=== PATIENT | male | born 1960 | race African-American/Black ===

== ENCOUNTER 2018-07-24 08:36 | Emergency (ER) | payer OTHER ==
[~2018-07-24] VITALS: Ht 182.9 cm; Wt 81.6 kg
[2018-07-24 08:33] VITALS: BP 148/78
[~2018-07-24 08:36] MED LIST: IBUPROFEN600 MG ORAL; NORCO 5-325 TA1 EACH ORAL; QUETIAPINE FUMA25 MG ORAL; ZOFRAN4 MG ORAL
--- NOTE | 2018-07-24 09:12 | Emergency Room Report ---
History of Present Illness General Chief Complaint: Medical Clearance Source: Patient, EMS Present Illness HPI Patient was brought in by police department for okay for booking As the patient was being arrested he had complained of chest pain and palpitations Patient himself here reported palpitation sensation however he was pain-free on my initial evaluation He did feel some shortness of breath and reported feeling anxious Denies any vomiting or diarrhea Denies any recent travel Patient complains of chronic sciatic pain and lower back Denies any focal weakness Allergies: Coded Allergies: No Known Allergies (Unverified , 02/21/13) Patient History Past Medical History: see triage record Pertinent Family History: none Reviewed Nursing Documentation: PMH: Agreed; PSxH: Agreed Nursing Documentation-PMH Hx Cardiac Problems: Yes Hx Hypertension: Yes History Of Psychiatric Problem: Yes Review of Systems All Other Systems: negative except mentioned in HPI Physical Exam Vital Signs Date Time Temp Pulse Resp B/P (MAP) Pulse Ox O2 Delivery O2 Flow Rate FiO2 07/24/18 08:28 98.1 84 18 148/78 100 Room Air 07/24/18 08:33 100 Sp02 EP Interpretation: reviewed, normal General Appearance: no apparent distress Head: normocephalic, atraumatic Eyes: bilateral eye PERRL, bilateral eye EOMI ENT: hearing grossly normal, normal pharynx, TMs + canals normal, uvula midline Neck: full range of motion, supple, no meningismus, no bony tend Respiratory: lungs clear, normal breath sounds, no rhonchi, no respiratory distress, no retraction, no accessory muscle use Cardiovascular #1: normal peripheral pulses, regular rate, rhythm, no edema, no gallop, no JVD, no murmur Gastrointestinal: normal bowel sounds, non tender, soft, no mass, no organomegaly, non-distended, no guarding, no hernia, no pulsatile mass, no rebound Musculoskeletal: normal inspection Neurologic: oriented x3, responsive, 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 as tested, motor strength/ tone normal, sensory intact Psychiatric: mood/affect normal Skin: normal color, no rash, warm/dry, palpation normal Lymphatic: normal inspection, no adenopathy Medical Decision Making Diagnostic Impression: Primary Impression: palpitations Additional Impression: ok to book ER Course Given the patient's complaints EKG was obtained Shows appropriate sinus rhythm Medical evaluation also reveals appropriate lung sounds No obvious respiratory distress patient continues to saturate well on room air and has appropriate hemodynamic stability At this time is appropriate for close outpatient follow-up Rhythm Strip Diag. Results EP Interpretation: yes Rate: 70 Rhythm: NSR, no PVC's, no ectopy Last Vital Signs Date Time Temp Pulse Resp B/P (MAP) Pulse Ox O2 Delivery O2 Flow Rate FiO2 07/24/18 08:33 98.0 85 20 148/78 100 Room Air 07/24/18 08:33 100 Status: improved Disposition: D/C TO [facility] IN [facility] Condition: Improved Departure Forms: Retirement Clearance Patient Instructions: Palpitations, [id number] Additional Instructions: Follow-up moe Damon in the morning Luis E Domingo DO Jul 24, 2018 09:12
[2018-07-24 09:19] VITALS: BP 147/87
== END 2018-07-24 09:20 ==
LOC: EDBD 08:36 → EMR 08:55
DX: R00.2 Palpitations (principal); R07.9 Chest pain, unspecified; I10 Essential (primary) hypertension
CPT/HCPCS: 93005; 99283

== ENCOUNTER 2019-05-16 11:38 | Emergency (ER) | payer OTHER ==
[~2019-05-16] VITALS: Ht 175.3 cm; Wt 85.7 kg
[2019-05-16 12:00] VITALS: BP 110/65
--- NOTE | 2019-05-16 12:00 | NUR ---
ED Nurse Note: Patient walked in to ER from home due to Rt lower toothache. pt aao x4 and ambulatory. skin clean and intact. calm and cooperative. no acute distress noted at this time.
--- NOTE | 2019-05-16 12:08 | Emergency Room Report ---
History of Present Illness General Chief Complaint: Toothache Source: Patient Present Illness HPI 58-year-old male with no significant past medical history here complaining of 10 days of right sided jaw pain secondary to a loose tooth that has been having pus drainage lately. Patient has an upcoming dental appointment in 2 weeks. Rating the pain 10 out of 10 without radiation. Denies numbness and tingling. Taking Tylenol ibuprofen with minimal relief. Patient denies any fever and chills, URI symptoms, headache, dizziness, chest pain, shortness of breath, palpitation, and other associated symptoms. Patient sitting comfortably with stable vital signs minimal pus drainage noted in the right posterior molars. Allergies: Coded Allergies: No Known Allergies (Unverified , 02/21/13) Patient History Past Medical History: see triage record Past Surgical History: unable to obtain Pertinent Family History: none Immunizations: UTD Reviewed Nursing Documentation: PMH: Agreed; PSxH: Agreed Nursing Documentation-PMH Hx Cardiac Problems: No - High cholesterol Hx Hypertension: Yes Review of Systems All Other Systems: negative except mentioned in HPI Physical Exam Vital Signs Date Time Temp Pulse Resp B/P (MAP) Pulse Ox O2 Delivery O2 Flow Rate FiO2 05/16/19 11:51 98.1 57 18 110/65 (80) 96 Room Air Sp02 EP Interpretation: reviewed, normal General Appearance: no apparent distress, alert, GCS 15, non-toxic Head: normocephalic, atraumatic Eyes: bilateral eye normal inspection, bilateral eye PERRL ENT: normal ENT inspection, hearing grossly normal, normal pharynx, no angioedema, other - pus drainage right posterior upper molar Neck: normal inspection, full range of motion, supple Respiratory: chest non-tender, lungs clear, normal breath sounds, no wheezing, speaking full sentences Cardiovascular #1: regular rate, rhythm, no edema, no murmur Gastrointestinal: normal bowel sounds, non tender, soft, non-distended, no guarding, no rebound Rectal: deferred Musculoskeletal: back normal, gait/station normal, normal range of motion, non- tender Neurologic: alert, oriented x3, responsive, motor strength/tone normal, sensory intact, speech normal Psychiatric: judgement/insight normal, memory normal, mood/affect normal, no suicidal/homicidal ideation Skin: no rash Lymphatic: no adenopathy Medical Decision Making PA Attestation All my diagnosis and treatment plans were reviewed ad discussed with my supervising physician Dr. Domingo Diagnostic Impression: Primary Impression: Tooth infection ER Course 58-year-old male with no significant past medical history here complaining of 10 days of right sided jaw pain secondary to a loose tooth that has been having pus drainage lately. Patient has an upcoming dental appointment in 2 weeks. Rating the pain 10 out of 10 without radiation. Denies numbness and tingling. Taking Tylenol ibuprofen with minimal relief. Patient denies any fever and chills, URI symptoms, headache, dizziness, chest pain, shortness of breath, palpitation, and other associated symptoms. Patient sitting comfortably with stable vital signs minimal pus drainage noted in the right posterior molars. Ddx considered but are not limited to : Cellulitis, tooth infection,toothache, tooth abscess Vital signs: are WNL, pt. is afebrile H&PE are most consistent with:tooth infx ORDERS: Augmentin, prednisone, ibuprofen ED INTERVENTIONS: Toradol DISCHARGE: At this time pt. is stable for d/c to home. Will provide printed patient care instructions, and any necessary prescriptions. Care plan and follow up instructions have been discussed with the patient prior to discharge. Take medication as directed follow-up with your next visit if worsening symptoms return to the emergency room avoid eating with the affected side Last Vital Signs Date Time Temp Pulse Resp B/P (MAP) Pulse Ox O2 Delivery O2 Flow Rate FiO2 05/16/19 11:51 98.1 57 18 110/65 (80) 96 Room Air Disposition: HOME, SELF-CARE Condition: Stable Scripts Ibuprofen (Ibu) 800 Mg Tablet 800 MG PO TID, #30 TAB Prov: Nitza Bhakta 05/16/19 Amoxicillin/Potassium Clav 875-125* (AUGMENTIN 875-125 TABLET*) 1 Each Tablet 1 TAB ORAL TWICE A DAY for 7 Days, #14 TAB Prov: Nitza Bhakta 05/16/19 Prednisone* (PREDNISONE*) 20 Mg Tablet 40 MG ORAL DAILY for 5 Days, #10 TAB Prov: Nitza Bhakta 05/16/19 Patient Instructions: Dental Pain Additional Instructions: Take medication as directed follow-up with your dentist if worsening symptoms return to the emergency Nitza Bhakta May 16, 2019 12:08
[2019-05-16] MEDS ORDERED: PREDNISONE20 MG ORAL (12:10)
[2019-05-16] MEDS ORDERED: IBU800 MG PO (12:10)
[2019-05-16] MEDS ORDERED: AUGMENTIN 875-1 EAC1 ORAL (12:10)
[2019-05-16] MEDS ORDERED: Ketorolac 30mg Inj IM ONE (12:15)
[2019-05-16 12:29] VITALS: BP 110/65
--- NOTE | 2019-05-16 12:29 | NUR ---
ER DISCHARGE NOTE: Patient is cleared to be discharged per ERMD, pt is aox4, on room air, with stable vital signs. pt was given dc and prescription instructions, pt was able to verbalize understanding, pt id band removed without complications. pt is able to ambulate with steady gait. pt took all belongings.
== END 2019-05-16 12:25 | disposition home or self-care (01) ==
LOC: EMR 12:05
DX: K04.7 Periapical abscess without sinus (principal); I10 Essential (primary) hypertension; E78.00 Pure hypercholesterolemia, unspecified
CPT/HCPCS: 96372; J1885; Z7502; 99283